=== PATIENT | male | born 1990 | race Caucasian/White ===

== ENCOUNTER 2018-02-11 12:19 | Emergency (ER) | payer OTHER ==
[2018-02-11] MEDS ORDERED: LACTATED RINGERS 1,000 ML IV STA (12:34)
--- NOTE | 2018-02-11 12:35 | ED Physician Documentation ---
History of Present Illness - Stated complaint Stated Complaint: CRAMPING - Chief complaint Chief Complaint: Abd Pain - History obtained from History obtained from: Patient - History of Present Illness Timing: Other (28-year-old gentleman with history of hypertension presents after [place] period [place] which he started to have diffuse muscle cramps and fatigue and near syncope. He feels better now after 1 L of IV fluids but still has some cramping especially in the abdominal wall muscles and upper chest wall/neck.) Review of Systems Constitutional: denies: Fever, Chills, Fatigue Cardiac: denies: Chest pain / pressure, Palpitations Respiratory: denies: Dyspnea, Cough PD PAST MEDICAL HISTORY - Present Medications Home Medications: Ambulatory Orders Medication Instructions Recorded Confirmed No Known Home Medications 02/11/18 02/11/18 - Allergies Allergies/Adverse Reactions: Allergies Allergy/AdvReac Type Severity Reaction Status Date / Time No Known Drug Allergies Allergy Verified 02/11/18 12:31 PD ED PE NORMAL - Vitals Vital signs reviewed: Yes - General General: Alert and oriented X 3, No acute distress - HEENT HEENT: Pharynx benign - Neck Neck: Supple, no meningeal sign, No bony TTP - Cardiac Cardiac: RRR, No murmur - Respiratory Respiratory: No respiratory distress, Clear bilaterally - Abdomen Abdomen: Non tender - Extremities Extremities: No deformity, No tenderness to palpate, Normal ROM s pain, Other (No tense compartments) - Neuro Neuro: Alert and oriented X 3, Normal speech Results - Vitals Vitals: Vital Signs - 24 hr 02/11/18 12:16 Temperature 36.8 C Heart Rate 81 Respiratory 18 Rate Blood Pressure 146/88 H O2 Saturation 96 Oxygen O2 Source Room air PD MEDICAL DECISION MAKING - ED course ED course: 28-year-old gentleman who is active duty in the [employer] has symptoms of dehydration starting during a personal fitness test today and cramping. He was feeling bett er after IV fluids. He does have evidence of mild dehydration on labs and only borderline CK. - Sepsis Event Vital Signs: Vital Signs - 24 hr 02/11/18 12:16 Temperature 36.8 C Heart Rate 81 Respiratory 18 Rate Blood Pressure 146/88 H O2 Saturation 96 Oxygen O2 Source Room air Departure - Departure Disposition: 01 Home, Self Care Clinical Impression: Dehydration Condition: Good Record reviewed to determine appropriate education?: Yes Instructions: ED Dehydration Comments: Drink plenty of fluids. Avoid nonsteroidal anti-inflammatory drugs like Motrin, you can take Tylenol for the cramps later. Do not exercise for a few days. Discharge Date/Time: 02/11/18 13:56
[2018-02-11 13:42] LABS: CALCIUM 8.9 mg/dL (8.5-10.3); CREATININE 1.5 mg/dL (0.6-1.2)
[2018-02-11 13:56] VITALS: BP 147/84
== END 2018-02-11 13:56 | disposition home or self-care (01) ==
LOC: ED 12:19
DX: E86.0 Dehydration (principal); I10 Essential (primary) hypertension
CPT/HCPCS: 36415; 80048; 82550; 96360; 99283; J7120